=== PATIENT | female | born 1990 | race Caucasian/White ===

== ENCOUNTER 2017-01-26 09:54 | Observation (INO) | payer MEDICAID, OTHER ==
[~2017-01-26] VITALS: Ht 157.5 cm; Wt 77.5 kg
[~2017-01-26 09:54] MED LIST: ACET-66 PO; DSS100 PO; FERR-72 PO; IBUP-1547 PO; PREN1TAB80 PO
[2017-01-26] MEDS ORDERED: DiphenhydrAMINE HCL 50 MG CAPSULE PO ONE (10:30)
[2017-01-26 13:08] VITALS: BP 102/59
== END 2017-01-26 12:55 | disposition home or self-care (01) ==
LOC: EMS 09:55 → INTOOBSV 10:55 → 4S 10:55
PROVIDERS: ADMIT Obstetrics & Gynecology; ATTEND Obstetrics & Gynecology
DX: O9A.213 Injury, poisoning and certain other consequences of external causes complicating pregnancy, third trimester (principal); M79.89 Other specified soft tissue disorders; T38.5X5A Adverse effect of other estrogens and progestogens, initial encounter; Y92.89 Other specified places as the place of occurrence of the external cause; Z3A.33 33 weeks gestation of pregnancy
CPT/HCPCS: 59025; 99285; G0378

== ENCOUNTER 2019-07-11 10:55 | Emergency (ER) | payer SELFPAY ==
[~2019-07-11] VITALS: Ht 157.5 cm; Wt 79.5 kg
[~2019-07-11 10:55] MED LIST changes: -ACET-66 PO; -FERR-72 PO; +FERR-89 PO; -IBUP-1547 PO; +IBUP-2070 PO; +PERCT PO
[2019-07-11] MEDS ORDERED: BACITRACIN 0.9 GM PACKET OINTMENT TP ONE (12:45)
[2019-07-11] MEDS ORDERED: LIDOCAINE 1% 10 ML VIAL INJ ONE (12:45)
[2019-07-11 14:20] VITALS: BP 120/79
== END 2019-07-11 14:20 | disposition home or self-care (01) ==
LOC: EMS 10:59
DX: S90.822A Blister (nonthermal), left foot, initial encounter (principal); X58.XXXA Exposure to other specified factors, initial encounter; Y93.89 Activity, other specified; Y92.89 Other specified places as the place of occurrence of the external cause; Y99.8 Other external cause status
CPT/HCPCS: 10140; 99284; J3490

== ENCOUNTER 2023-02-23 15:28 | Emergency (ER) | payer OTHER ==
[~2023-02-23] VITALS: Ht 157.5 cm; Wt 81.8 kg
[2023-02-23 15:33] VITALS: BP 137/78; PULSE 94; RESP 18; TEMP 98.3
[2023-02-23] MEDS ORDERED: PENI500T2 PO (15:40)
[2023-02-23] MEDS ORDERED: IBUP-1554 PO (15:40)
== END 2023-02-23 15:47 | disposition home or self-care (01) ==
LOC: EMS 15:30
DX: K05.10 Chronic gingivitis, plaque induced (principal); J02.9 Acute pharyngitis, unspecified
CPT/HCPCS: 99283; Z7502